=== PATIENT | male | born 1960 | race Caucasian/White ===

== ENCOUNTER 2017-04-08 10:17 | Emergency (ER) | payer OTHER ==
[~2017-04-08] VITALS: Ht 177.8 cm; Wt 96.5 kg
[~2017-04-08 10:17] MED LIST: CITALOPRAM HBR20 MG PO; THERAGRAN1 TABLET PO; VITAMIN B-1100 MG PO; ZOLPIDEM TARTRAT5 MG PO
[2017-04-08 14:58] VITALS: BP 138/74
== END 2017-04-08 15:02 | disposition home or self-care (01) ==
LOC: EME 10:17
PROC: 09C47ZZ Extirpation of Matter from Left External Auditory Canal, Via Natural or Artificial Opening (ICD-10-PCS; principal; 2017-04-08)
PROC: 09C37ZZ Extirpation of Matter from Right External Auditory Canal, Via Natural or Artificial Opening (ICD-10-PCS; principal; 2017-04-08)
DX: H61.23 Impacted cerumen, bilateral (principal)
CPT/HCPCS: 99281; 99284